=== PATIENT | female | born 1955 | race Caucasian/White ===

== ENCOUNTER 2019-02-22 16:47 | Emergency (ER) | payer MEDICARE, BC ==
[~2019-02-22] VITALS: Ht 175.3 cm; Wt 109.1 kg
[2019-02-22 16:51] VITALS: Ht 175.3 cm; Wt 109.1 kg
[2019-02-22 18:29] LABS: BASOPHILS 0.6 % (0-2); EOSINOPHILS 4.1 % (0-7); HEMATOCRIT 37.3 % (36.0-48.0); HEMOGLOBIN 12.5 g/dL (12-16); IMMATURE GRANULOCYTES 0.7 % (0-5); LYMPHOCYTES 37.7 % (15-50); MCH 29.6 pg (26.0-34.0); MCHC 33.5 g/dL (31.0-37.0); MCV 88.4 fL (80.0-100.0); MEAN PLATELET VOLUME 11.4 fL (7.4-10.4); MONOCYTES 14.3 % (2-11); NEUTROPHILS 42.6 % (40-80); PLATELET COUNT 403 10x3/uL (130-400); RBC 4.22 10x6/uL (4.00-5.40); RDW 14.4 % (11.5-14.5); WBC 11.1 10x3/uL (4.8-10.8)
[2019-02-22 18:33] LABS: APTT 26.1 SECONDS (22.8-39.4); INR 0.97 (0.85-1.17); PROTIME 12.3 SECONDS (11.6-15.0)
[2019-02-22 18:43] LABS: ALBUMIN 3.3 g/dL (3.4-5.0); ALKALINE PHOSPHATASE 101 U/L (46-116); ALT (SGPT) 21 U/L (10-68); BILIRUBIN - TOTAL 0.26 mg/dL (0.2-1.3); CALC OSMOLALITY 284 mosm/kg (275-300); CALCIUM 9.2 mg/dL (8.5-10.1); CARBON DIOXIDE 26.9 mmol/L (21.0-32.0); CHLORIDE - SERUM 105 mmol/L (98-107); CREATININE - SERUM 0.9 mg/dL (0.6-1.3); GLUCOSE 87 mg/dL (74-106); POTASSIUM - SERUM 4.4 mmol/L (3.5-5.1); PROTEIN - SERUM 7.3 g/dL (6.4-8.2); SODIUM 142 mmol/L (136-145); UREA NITROGEN 22 mg/dL (7-18); eGFR NON AFRICAN AMERICAN 67 mL/min (90-120)
[2019-02-22 18:53] LABS: CKMB 0.6 U/L (0.0-3.6); CREATINE KINASE 75 UL (21-215); MAGNESIUM - SERUM 1.4 mg/dL (1.8-2.4); TROPONIN-I 0.029 ng/mL (0.000-0.060)
[2019-02-22 19:30] VITALS: BP 123/81
== END 2019-02-22 19:30 | disposition home or self-care (01) ==
LOC: D.ER 16:47
PROVIDERS: Family Medicine
DX: R07.89 Other chest pain (principal); E11.9 Type 2 diabetes mellitus without complications; Z86.73 Personal history of transient ischemic attack (TIA), and cerebral infarction without residual deficits

== ENCOUNTER → 2019-03-02 16:35 | Outpatient (CLI) | payer MEDICARE, BC ==
[2019-02-22 16:51] VITALS: BMI 35.5
[2019-03-02 17:06] LABS: T4 THYROXINE 11.1 ug/dL (4.7-13.3); THYROID STIMULATING HORMONE 1.41 uIU/mL (0.36-3.74)
== END | disposition home or self-care (01) ==
LOC: D.LABREF 16:35
PROVIDERS: ATTEND Internal Medicine Cardiovascular Disease
DX: R00.2 Palpitations (principal)

== ENCOUNTER 2019-03-29 14:03 | Outpatient (CLI) | payer MEDICARE, BC, OTHER ==
[2019-02-22 16:51] VITALS: BMI 35.5
== END 2019-03-29 23:59 | disposition home or self-care (01) ==
LOC: D.MAMMO 14:03
PROVIDERS: ATTEND Nurse Practitioner
DX: Z12.31 Encounter for screening mammogram for malignant neoplasm of breast (principal)